=== PATIENT | male | born 1995 | race African-American/Black ===

== ENCOUNTER 2020-11-04 13:33 | Outpatient (REF) | payer OTHER, SELFPAY ==
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
== END 2020-11-04 13:34 | disposition home or self-care (01) ==
LOC: HO.SH 13:33
PROVIDERS: Visit Provider Internal Medicine
DX: H93.293 Other abnormal auditory perceptions, bilateral (principal)
CPT/HCPCS: 92557; 92567

== ENCOUNTER 2020-11-29 07:30 | Outpatient (REF) | payer OTHER, SELFPAY ==
[2020-11-29 09:17] LABS: Alanine Aminotransferase 39 U/L (0-40); Albumin Level 4.6 g/dL (3.5-5.0); Alkaline Phosphatase 106 U/L (39-117); Anion Gap 13 (12-20); Aspartate Amino Transferase 30 U/L (5-37); Bilirubin Total 1.4 mg/dL (0.0-1.0); Blood Urea Nitrogen 15 mg/dL (9-16); Calcium 9.5 mg/dL (8.4-10.2); Carbon Dioxide 28 mmol/L (22-29); Chloride 104 mmol/L (96-108); Cholesterol 156 mg/dL; Estimated Glomerular Filt Rate > 60; Glucose Fasting 106 mg/dL (60-99); HDL Cholesterol 42 mg/dL; LDL Cholesterol Calculated 102 mg/dl; Potassium 4.6 mmol/L (3.3-5.1); Sodium 140 mmol/L (135-145); Total Protein 7.2 g/dL (6.5-8.0); Triglycerides 60 mg/dL
[2020-12-02 11:52] LABS: Vitamin D 25-OH, D2 <4 ng/mL; Vitamin D 25-OH, D3 23 ng/mL; Vitamin D 25-OH, Total 23 ng/mL (30-100)
[2020-12-05 15:12] LABS: Testosterone, Total 602 ng/dL (250-1100)
== END 2020-11-29 07:31 | disposition home or self-care (01) ==
LOC: HO.LAB 07:30
PROVIDERS: PCP Internal Medicine; Visit Provider Internal Medicine
DX: E66.3 Overweight (principal); E34.9 Endocrine disorder, unspecified; E55.9 Vitamin D deficiency, unspecified
CPT/HCPCS: 36415; 80053; 80061; 82306; 84402; 84403

== ENCOUNTER 2021-06-07 11:46 | Outpatient (REF) | payer OTHER, SELFPAY ==
--- NOTE | ~2021-06-07 | XR_ITS ---
EXAMINATION: XR KNEE, RIGHT CLINICAL INFORMATION: Pain. COMPARISON: None TECHNIQUE: AP, lateral and sunrise views of the right knee are submitted. FINDINGS: Bones and soft tissues are normal. No fracture or dislocation. There is a very small joint effusion. Alignment is anatomic. Joint spaces are well maintained. No abnormal soft tissue calcification. XR/XR knee RT 3V IMPRESSION: The right knee shows no fracture, dislocation or unusual degenerative change. There is a very small joint effusion. EXAMINATION: XR KNEE, LEFT CLINICAL INFORMATION: Pain. COMPARISON: None TECHNIQUE: AP, lateral and sunrise views of the left knee are submitted. FINDINGS: Bones and soft tissues are normal. No fracture or dislocation. There is a very small joint effusion. Alignment is anatomic. Joint spaces are well maintained. No abnormal soft tissue calcification. IMPRESSION: The left knee shows no fracture, dislocation or unusual degenerative change. As with the contralateral side, there is a very small joint effusion.
--- NOTE | ~2021-06-07 | XR_ITS ---
EXAMINATION: XR KNEE, RIGHT CLINICAL INFORMATION: Pain. COMPARISON: None TECHNIQUE: AP, lateral and sunrise views of the right knee are submitted. FINDINGS: Bones and soft tissues are normal. No fracture or dislocation. There is a very small joint effusion. Alignment is anatomic. Joint spaces are well maintained. No abnormal soft tissue calcification. XR/XR knee LT 3V IMPRESSION: The right knee shows no fracture, dislocation or unusual degenerative change. There is a very small joint effusion. EXAMINATION: XR KNEE, LEFT CLINICAL INFORMATION: Pain. COMPARISON: None TECHNIQUE: AP, lateral and sunrise views of the left knee are submitted. FINDINGS: Bones and soft tissues are normal. No fracture or dislocation. There is a very small joint effusion. Alignment is anatomic. Joint spaces are well maintained. No abnormal soft tissue calcification. IMPRESSION: The left knee shows no fracture, dislocation or unusual degenerative change. As with the contralateral side, there is a very small joint effusion.
--- NOTE | ~2021-06-07 | XR_ITS ---
EXAMINATION: XR LUMBOSACRAL SPINE CLINICAL INFORMATION: Lower back pain. COMPARISON: None TECHNIQUE: AP and lateral views of the lumbar spine and lateral view of the lumbosacral junction. FINDINGS: There is a mild L1 anterior wedge compression fracture. There is mild disc space narrowing at L5-S1, with a 3 mm retrolisthesis. The remaining disc spaces are well-maintained. No acute fracture or spondylolisthesis is seen. The posterior elements are intact. The paravertebral soft tissues are unremarkable. XR/XR lumbar spine 2-3V IMPRESSION: 1. There is an age-indeterminate mild L1 anterior wedge compression fracture. 2. There is mild degenerative disc disease at L5-S1.
== END 2021-06-07 11:47 | disposition home or self-care (01) ==
LOC: HO.XRAY 11:46
PROVIDERS: PCP Internal Medicine; Visit Provider Internal Medicine
DX: M25.561 Pain in right knee (principal); M25.562 Pain in left knee; M54.50 Low back pain, unspecified; Z23 Encounter for immunization
CPT/HCPCS: 72100; 73562

== ENCOUNTER → 2021-06-23 09:12 | Outpatient (BNVA) | payer OTHER, SELFPAY | PROVIDERS: Visit Provider Physician Assistant | DX: M22.2X1 Patellofemoral disorders, right knee (principal); M22.2X2 Patellofemoral disorders, left knee; S32.000D Wedge compression fracture of unspecified lumbar vertebra, subsequent encounter for fracture with routine healing | CPT/HCPCS: 20610; 99202; J1040 ==

== ENCOUNTER 2021-07-05 14:40 | Outpatient (REF) | payer OTHER, SELFPAY | END 2021-07-05 14:41 | disposition home or self-care (01) | LOC: HO.HMGCLDS 14:40 | PROVIDERS: Visit Provider Internal Medicine | DX: Z20.822 Contact with and (suspected) exposure to COVID-19 (principal) | CPT/HCPCS: C9803; U0003; U0005 ==

== ENCOUNTER 2021-09-08 09:34 | Outpatient (REF) | payer OTHER, SELFPAY ==
[2021-09-08 10:46] LABS: Binax Internal Control QC Valid; Binax Now Covid-19 Ag Negative (Negative)
== END 2021-09-08 09:35 | disposition home or self-care (01) ==
LOC: HO.LAB 09:34
PROVIDERS: Visit Provider Internal Medicine
DX: Z20.822 Contact with and (suspected) exposure to COVID-19 (principal)
CPT/HCPCS: 36415; C9803

== ENCOUNTER → 2021-09-11 15:38 | Outpatient (BNVA) | payer OTHER, SELFPAY | PROVIDERS: PCP Internal Medicine; Visit Provider Internal Medicine | DX: M25.561 Pain in right knee (principal); M22.2X1 Patellofemoral disorders, right knee; M22.2X2 Patellofemoral disorders, left knee; S32.000D Wedge compression fracture of unspecified lumbar vertebra, subsequent encounter for fracture with routine healing; M54.50 Low back pain, unspecified | CPT/HCPCS: 99202 ==

== ENCOUNTER 2021-10-12 09:21 | Outpatient (REF) | payer OTHER, SELFPAY ==
[2021-10-12 09:40] LABS: COVID-19 Test Negative (Negative)
== END 2021-10-12 09:22 | disposition home or self-care (01) ==
LOC: HO.LAB 09:21
PROVIDERS: Visit Provider Internal Medicine
DX: Z20.822 Contact with and (suspected) exposure to COVID-19 (principal)
CPT/HCPCS: 87635; C9803

== ENCOUNTER 2021-10-30 15:00 | Outpatient (RCR) | payer OTHER, SELFPAY ==
--- NOTE | 2021-07-05 16:52 | MHC.PT.EP ---
[facility] [place] Office [place] Office [place] [facility] [address] Lizzie Galan [address] [phone] F: [phone] F: [phone] F: [phone] F: [phone] Physical Therapy Plan of Care Date of Evaluation: Date of Surgery: Diagnosis: This is a 26 yo male presenting to skilled PT with a script for LBP Assessment: He was seen by [facility] who referred him out to pain management for his back symptoms but did tx his knee (cortisone). He will be seeing pain management for his back but was under the impression he was getting PT for his knee. We will tx both as needed but focused on his knees at eval. His knee pain has been ongoing for about 4 years now, dx originally as runner's knee and thought to increase due to job related activities. He is in the . His R is worse than the L (cortisone was in the R and feels worse s/p injection). His pain is located inferior to the patella in the fat pads, laterally at the LCL and posterior at the hamstrings. Pain is achy but can be sharp. He reports non painful crepitus that is constant. He has pain during activities and after. Assessment reveals pain that ranges up to a 3/10. He demos decreased hip ROM with tight adductors and hip flexors, decreased hip and glut strength, impaired gait pattern with adducted and valgus posturing, impaired and painful patella and fibular joint mobility, TTP at LCL on the R with nonpainful crepitis, - special tests for ligament involvement at the knees but + froylan test as well as gross functional decline with higher level LB activities. He is a good candidate for skilled PT 2x/wk for 5wks. He is currently not limiting himself in work outs as this is part of his job. His goals are to improve some pain, learn stretches. Plan for next session adductor stretching, elliptical, abductor strengthening, lunges Frequency and Duration: The patient will be seen 2x/wk for 5wks Short Term Goals: I in HEP follow up for proper shoewear and inserts Salesforce Administrator Goals: Normal Froylan test 5/5 BLE strength demo proper squat and lift techniques without pain Treatment Plan: Modalities to reduce pain, spasms and effusion. Manual therapy to restore motion and function. Therapeutic exercise to improve strength and flexibility. Neuromuscular re-education for posture and balance. Therapeutic activities to return to functional activities of daily living. Electronically signed by: Jemima Briggs PT Please sign and return to therapist. Thank you for your referral.
--- NOTE | 2021-11-20 16:55 | MHC.PT.DC ---
[facility] [place] Office [place] Office [place] Office [address] Lizzie Galan [address] [phone] F: [phone] F: [phone] F: [phone] F: [phone] Physical Therapy Discharge Report Diagnosis: This is a 26 yo male presenting to skilled PT with a script for LBP, B knee pain Date of Surgery: Date of Evaluation: 07/05/21 Date of Discharge: 11/20/21 Treatments to Date: 14 Cancellations to Date: 0 No Shows to Date: 1 Discharge Status: Discharge Summary: 10/30: Educated patient on tens machine today, also on referrals to acupuncture and orthotics if he chooses to do so. I also educated him on a tens unit which can be provided with a script if possible as well if desired. Provided him with HEP pictures as well as education on how these exercises are for his back and knees. I discussed with him that I do not feel like he needs skilled PT anymore at this time. He has been I in a gym routine on his own, PT is not doing any manual work and patient is also consistently late to appointments which we have talked about in the past as well. I also educated him on the chronic nature of his pain and symptoms, his expectations of PT and how we are promoting I in HEP and eventual DC is normal. He has a very thorough HEP to continue on his own. DC to HEP at this time. Electronically signed by: Jemima Briggs, PT Please sign and return to therapist. Thank you for your referral.
== END 2021-11-20 16:55 | disposition home or self-care (01) ==
LOC: HO.PTCHIC 15:00
PROVIDERS: PCP Internal Medicine; Visit Provider Internal Medicine
DX: M54.50 Low back pain, unspecified (principal); M25.561 Pain in right knee; M25.562 Pain in left knee
CPT/HCPCS: 97014; 97110; 97140; 97162; 97530

== ENCOUNTER → 2022-01-09 09:02 | Outpatient (REF) | payer OTHER, SELFPAY | LOC: HO.SL 09:02 | PROVIDERS: PCP Internal Medicine; Visit Provider Internal Medicine | DX: G47.33 Obstructive sleep apnea (adult) (pediatric) (principal); R40.0 Somnolence | CPT/HCPCS: 95806 ==